=== PATIENT | male | born 1950 ===

== ENCOUNTER → 2022-09-19 | Outpatient (CLI) | payer MEDICARE | LOC: LAB SHORT 10:00 → LAB 10:00 | DX: L23.7 Allergic contact dermatitis due to plants, except food (principal); D48.5 Neoplasm of uncertain behavior of skin; L57.8 Other skin changes due to chronic exposure to nonionizing radiation; L82.1 Other seborrheic keratosis; L85.3 Xerosis cutis; Z85.828 Personal history of other malignant neoplasm of skin; Z71.89 Other specified counseling | CPT/HCPCS: 87798 ==

== ENCOUNTER → 2023-10-30 | Outpatient (CLI) | payer MEDICARE | LOC: LAB SHORT 09:36 → LAB 09:36 | DX: L02.02 Furuncle of face (principal); L21.8 Other seborrheic dermatitis | CPT/HCPCS: 87070; 87205 ==